=== PATIENT | female | born 1985 | race African-American/Black ===

== ENCOUNTER 2017-07-17 22:20 | Emergency (ER) | payer OTHER ==
[2017-07-17 22:59] LABS: ADD MAN DIFF? NO
[2017-07-17 23:01] LABS: BASO # 0.1 x10^3/uL (0.0-0.2); BASO % 1 % (0-3); EOS # 0.2 x10^3/uL (0.0-0.7); EOS % 2 % (0-3); HEMATOCRIT 33.6 % (36.0-47.0); HEMOGLOBIN 10.6 g/dL (12.0-15.5); LYMPH # 3.7 x10^3/uL (1.0-4.8); LYMPH % 26 % (24-48); MEAN CORPUSCULAR HEMOGLOBIN 24 pg (25-35); MEAN CORPUSCULAR HGB CONC 32 g/dL (31-37); MEAN CORPUSCULAR VOLUME 76 fL (79-100); MONO # 0.9 x10^3/uL (0.0-1.1); MONO % 6 % (0-9); NEUT # 9.4 x10^3uL (1.8-7.7); NEUT % 65 % (31-73); PLATELET COUNT 284 x10^3/uL (140-400); RED BLOOD COUNT 4.41 x10^6/uL (3.50-5.40); RED CELL DISTRIBUTION WIDTH 18.8 % (11.5-14.5); WHITE BLOOD COUNT 14.4 x10^3/uL (4.0-11.0)
[2017-07-17] MEDS: IV NORMAL SALINE 1000ML BAG 1,000 ML IV (23:37)
[2017-07-18 00:05] LABS: GLUCOSE 90 mg/dL (70-99)
[2017-07-18 00:05] LABS: MAGNESIUM 1.9 mg/dL (1.8-2.4)
[2017-07-18 00:06] LABS: ANION GAP 6 (6-14); BLOOD UREA NITROGEN 14 mg/dL (7-20); CARBON DIOXIDE 31 mmol/L (21-32); CHLORIDE 101 mmol/L (98-107); CREATININE 0.9 mg/dL (0.6-1.0); GFR 88.4; POTASSIUM 3.9 mmol/L (3.5-5.1); SODIUM 138 mmol/L (136-145)
[2017-07-18] MEDS: IV NORMAL SALINE 1000ML BAG 1,000 ML IV (00:15)
[2017-07-18 00:24] LABS: URINE HCG POC HCG NEGATIVE (Negative)
[2017-07-18 00:27] LABS: BILIRUBIN,URINE NEGATIVE (NEG); CLARITY,URINE CLEAR; COLOR,URINE YELLOW; GLUCOSE,URINE NEGATIVE (NEG); NITRITE,URINE NEGATIVE (NEG); PH,URINE 6.5; PROTEIN,URINE NEGATIVE (NEG-TRACE)
[2017-07-18 00:37] LABS: BACTERIA,URINE FEW /HPF (0-FEW); RBC,URINE >40 /HPF (0-2); SQUAMOUS EPITHELIAL CELL,UR FEW /LPF; WBC,URINE OCC /HPF (0-4)
== END 2017-07-18 01:20 | disposition home or self-care (01) ==
LOC: ER 07-18 01:20
DX: I95.1 Orthostatic hypotension (principal); I10 Essential (primary) hypertension
CPT/HCPCS: 36415; 80048; 81001; 81025; 83735; 85025; 93005; 96360; 99285-25; J7030

== ENCOUNTER → 2017-10-23 | Outpatient (CLI) | payer OTHER | END | disposition home or self-care (01) | LOC: US 07:14 | DX: N92.0 Excessive and frequent menstruation with regular cycle (principal) | CPT/HCPCS: 76830; 76856 ==

== ENCOUNTER → 2017-11-17 | Outpatient (CLI) | payer OTHER | END | disposition home or self-care (01) | LOC: MRI 14:19 | DX: M84.372 Stress fracture, left ankle (principal); M21.42 Flat foot [pes planus] (acquired), left foot; X58.XXXS Exposure to other specified factors, sequela | CPT/HCPCS: 73718 ==